=== PATIENT | male | born 2000 | race Caucasian/White ===

== ENCOUNTER 2022-08-02 22:48 | Emergency (ER) | payer OTHER ==
[~2022-08-02] VITALS: Ht 185.4 cm; Wt 88.9 kg
[2022-08-02 23:25] VITALS: BP 136/90
--- NOTE | 2022-08-02 23:39 | NUR ---
VISUAL ACUITY FOLLOWS: B 20/30, RT 20/50, LT 20/30
[2022-08-03] MEDS ORDERED: TETRACAINE HCL/PF 0.5% OPTH 4 ML BTL OP ONE (00:25)
[2022-08-03] MEDS ORDERED: FLUORESCEIN OPTH STRIP 1 MG OP ONE (00:25)
--- NOTE | 2022-08-03 01:20 | NUR ---
SEEN BY DR. SANDOVAL IN TRIAGE
[2022-08-03 01:37] VITALS: BP 136/90
--- NOTE | 2022-08-03 01:37 | NUR ---
Patient discharged with v/s stable. Written and verbal after care instructions given and explained. Patient verbalized understanding. Ambulatory with steady gait. All questions addressed prior to discharge. Advised to follow up with PMD.
== END 2022-08-03 01:37 | disposition home or self-care (01) ==
LOC: MED 22:48
DX: H10.213 Acute toxic conjunctivitis, bilateral (principal)
CPT/HCPCS: 99283